=== PATIENT | female | born 1975 ===

== ENCOUNTER 2021-09-26 18:17 | Outpatient (REF) | payer SELFPAY | END 2021-09-26 18:18 | disposition home or self-care (01) | LOC: NCHCN 18:17 | PROVIDERS: Visit Provider Nurse Practitioner Family ==

== ENCOUNTER 2021-09-28 09:27 | Outpatient (CLI) | payer MEDICAID, SELFPAY ==
[2021-09-30 13:35] LABS: TB Interpretation Negative (Negative); TB1 Ag minus Nil 0.02 IU/ml
== END 2021-09-28 09:28 | disposition home or self-care (01) ==
LOC: LBO 09:28
PROVIDERS: Visit Provider Nurse Practitioner Family
DX: Z11.1 Encounter for screening for respiratory tuberculosis (principal)
CPT/HCPCS: 36415; 86480